=== PATIENT | male | born 1995 | race African-American/Black ===

== ENCOUNTER → 2017-05-15 | Outpatient (REF) ==
[~2017-05-15] MED LIST: NO HOME MEDICATIONS; PHENERGAN 25 TA25 MG PO; [UNRECOGNIZED DRUG - REMARK]
== END ==
LOC: ZLAB.WCH 08:39
DX: Z01.89 Encounter for other specified special examinations (principal)

== ENCOUNTER 2017-06-09 09:59 | Emergency (ER) | payer SELFPAY ==
[~2017-06-09] VITALS: Ht 185.4 cm; Wt 89.5 kg
[~2017-06-09 09:59] MED LIST changes: -PHENERGAN 25 TA25 MG PO
[2017-06-09 10:02] VITALS: BP 126/70; TEMP 98.6
[2017-06-09] MEDS ORDERED: PHENERGAN 25 TA25 MG PO (10:32)
[2017-06-09 10:44] LABS: HEMATOCRIT 44.8 % (36.0-47.0); MEAN CELL VOLUME 81 fl (80.0-95.0); MEAN CORPUSCULAR HEMOGLOBIN 27 pg (26.0-32.0); MEAN CORPUSCULAR HGB CONC 34 g/dl (33.0-37.0); MEAN PLATELET VOLUME 10.3 fl (7.4-10.4); PLATELET COUNT 127 K/mm3 (130-400); RED BLOOD COUNT 5.52 M/mm3 (4.20-5.60); REDCELL DISTRIBUTION WIDTH-CV 13.3 % (11.5-14.5); WHITE BLOOD COUNT 8.5 K/mm3 (4.8-10.8)
[2017-06-09 10:45] LABS: ADD PATHOLOGY DIFF REVIEW NO
[2017-06-09 10:47] LABS: PH 6 (5-8); SQUAMOUS EPITHELIAL None Seen /hpf; URINE APPEARANCE Clear; URINE BACTERIA Rare /hpf; URINE BILIRUBIN Negative (NEGATIVE); URINE BLOOD Negative (NEGATIVE); URINE COLOR Yellow; URINE GLUCOSE Negative (NEGATIVE); URINE KETONE Trace (NEGATIVE); URINE UROBILINOGEN Negative (NEGATIVE)
[2017-06-09 10:57] LABS: ADJUSTED CALCIUM 8.8 mg/dL (8.4-10.2); ALBUMIN 4.8 gm/dL (3.5-5.0); BILIRUBIN,TOTAL 2.6 mg/dL (0.0-1.0); CALCIUM 9.4 mg/dL (8.4-10.2); CREATININE, serum 0.86 mg/dL (0.66-1.25); POTASSIUM 3.9 mmol/L (3.4-5.0); TOTAL PROTEIN 7.8 gm/dL (6.4-8.2)
[2017-06-09 11:56] VITALS: PULSE 84
[2017-06-09 13:02] LABS: BAND 38 % (0-10); EOSINOPHIL 1 % (0-4); MICROCYTOSIS 1+; MYELOCYTE 4 % (0-0); NEUTROPHILS 51 % (42.0-75.2); PLATELET ESTIMATE NORMAL (NORMAL); TOTAL CELLS COUNTED 100
== END 2017-06-09 11:56 | disposition home or self-care (01) ==
LOC: COL.ER 09:59
PROVIDERS: Emergency Medicine
DX: R10.33 Periumbilical pain (principal); R11.10 Vomiting, unspecified; R19.7 Diarrhea, unspecified
CPT/HCPCS: J2405; J2550; J7030

== ENCOUNTER 2020-12-06 14:57 | Emergency (ER) | payer SELFPAY ==
[~2020-12-06] VITALS: Ht 185.4 cm; Wt 118.6 kg
[~2020-12-06 14:57] MED LIST changes: +PHENERGAN 25 TA25 MG PO
[2020-12-06 15:03] VITALS: BP 144/82; PULSE 101; TEMP 98.7
== END 2020-12-06 15:36 | disposition home or self-care (01) ==
LOC: COL.ER 14:57
DX: S61.011A Laceration without foreign body of right thumb without damage to nail, initial encounter (principal); F17.210 Nicotine dependence, cigarettes, uncomplicated; Z88.8 Allergy status to other drugs, medicaments and biological substances; W26.0XXA Contact with knife, initial encounter

== ENCOUNTER 2022-07-12 21:28 | Emergency (ER) | payer SELFPAY ==
[~2022-07-12] VITALS: Ht 185.4 cm; Wt 133.2 kg
[2022-07-12 21:31] VITALS: TEMP 98.3
[2022-07-12 22:22] LABS: BASO % 0.4 % (0.0-2.0); EOS # 0.2 K/mm3 (0.0-0.7); EOS % 2.2 % (0.0-4.0); GRAN # 4.7 K/mm3 (1.4-6.5); GRAN % 60.5 % (42.2-75.2); HEMOGLOBIN 13.8 g/dl (13.5-18.0); LYMPH # 2.1 K/mm3 (1.2-3.4); LYMPH % 26.1 % (20.0-51.0); MEAN CELL VOLUME 82 fl (80.0-100.0); MEAN CORPUSCULAR HEMOGLOBIN 27 pg (27-31); MEAN CORPUSCULAR HGB CONC 34 g/dl (33.0-37.0); MONO # 0.8 K/mm3 (0.1-0.6); MONO % 10.2 % (1.7-9.3); PLATELET COUNT 198 K/mm3 (130-400); RED BLOOD COUNT 5.03 M/mm3 (4.20-5.60); REDCELL DISTRIBUTION WIDTH-CV 13.3 % (11.5-14.5)
[2022-07-12 22:42] LABS: ALBUMIN 4.1 gm/dL (3.5-5.0); BILIRUBIN,TOTAL 0.5 mg/dL (0.2-1.2); CALCIUM 9.6 mg/dL (8.4-10.2); CREATININE, serum 0.94 mg/dL (0.72-1.25); POTASSIUM 3.9 mmol/L (3.5-4.5); TOTAL PROTEIN 7.1 gm/dL (6.2-8.1)
[2022-07-12 22:57] VITALS: BP 155/87; PULSE 97
== END 2022-07-12 23:07 | disposition home or self-care (01) ==
LOC: COL.ER 21:28
PROVIDERS: Physician Assistant
DX: B34.9 Viral infection, unspecified (principal); F17.210 Nicotine dependence, cigarettes, uncomplicated; Z20.822 Contact with and (suspected) exposure to COVID-19; Z28.310 Unvaccinated for COVID-19; Z86.16 Personal history of COVID-19
CPT/HCPCS: J1885; J2405; J7030

== ENCOUNTER 2022-07-18 08:00 | Emergency (ER) | payer SELFPAY ==
[~2022-07-18] VITALS: Ht 185.4 cm; Wt 137.7 kg
[2022-07-18 08:29] VITALS: TEMP 98.5
[2022-07-18 10:48] LABS: BASO % 0.3 % (0.0-2.0); EOS # 0.1 K/mm3 (0.0-0.7); EOS % 1.4 % (0.0-4.0); HEMATOCRIT 38.9 % (42.0-52.0); LYMPH # 1.7 K/mm3 (1.2-3.4); LYMPH % 21.7 % (20.0-51.0); MEAN CELL VOLUME 81 fl (80.0-100.0); MEAN CORPUSCULAR HEMOGLOBIN 27 pg (27-31); MEAN CORPUSCULAR HGB CONC 33 g/dl (33.0-37.0); MEAN PLATELET VOLUME 10.3 fl (7.4-10.4); MONO # 0.9 K/mm3 (0.1-0.6); MONO % 11.3 % (1.7-9.3); PLATELET COUNT 179 K/mm3 (130-400); RED BLOOD COUNT 4.79 M/mm3 (4.20-5.60); REDCELL DISTRIBUTION WIDTH-CV 13.1 % (11.5-14.5)
[2022-07-18 11:09] LABS: ALBUMIN 4.1 gm/dL (3.5-5.0); BILIRUBIN,TOTAL 0.7 mg/dL (0.2-1.2); CALCIUM 9.4 mg/dL (8.4-10.2); CREATININE, serum 1.14 mg/dL (0.72-1.25); POTASSIUM 4.4 mmol/L (3.5-4.5); TOTAL PROTEIN 6.6 gm/dL (6.2-8.1)
[2022-07-18 11:47] VITALS: BP 127/69; PULSE 71
== END 2022-07-18 11:50 | disposition home or self-care (01) ==
LOC: COL.ER 08:00
PROVIDERS: Physician Assistant
DX: R51.9 Headache, unspecified (principal); R42 Dizziness and giddiness; Z20.822 Contact with and (suspected) exposure to COVID-19; Z28.310 Unvaccinated for COVID-19
CPT/HCPCS: J1885; J7030